=== PATIENT | male | born 1935 | race Caucasian/White ===

== ENCOUNTER 2017-11-04 11:32 | Observation (INO) | payer MEDICARE ==
[2017-11-04] MEDS ORDERED: Aspirin 81 mg CHEW TAB* 81 MG TAB.CHEW PO ONE (11:39)
--- NOTE | 2017-11-04 12:04 | ED ---
HPI Chest Pain - HPI Summary HPI Summary: patient is an 82-year-old male presenting to the ED with complaint of left anterior chest discomfort which began 3 days ago. He also endorses some left upper back pain which he does not feel is radiated from the anterior chest. Endorses some tingling feelings to the left arm and fingertips which is intermittent. He does not feel this currently. Symptoms have improved since 3 days ago, however he states he continues to have the feelings. History of quadruple bypass CABG in 1997. Stent placements 2 both prior to and after the CABG. Pacemaker placement in 2000 and battery changed in 2014. Most recent stress test was approximately 2 years ago and was "normal." On arrival he is comfortable, nondiaphoretic. is at bedside. 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 Last visit 8 months ago. He remains on aspirin 81 mg, and ramipiril 5mg, rosuvastatin 10mg once daily. Denies any SOB, fevers, sweats and chills. He states he takes care of himself otherwise and has not had any recent illness. He is feeling otherwise at baseline. - History of Current Complaint Chief Complaint: EDChestPainROMI Time Seen by Provider: 11/04/17 11:37 Hx Obtained From: Patient, Family/Dry Kiln Worker Onset/Duration: Started Days Ago - 3 days ago Timing: Constant Initial Severity: Mild Current Severity: Mild Pain Intensity: 4 Pain Scale Used: 0-10 Numeric Chest Pain Location: Left Anterior, Left Lateral Chest Pain Radiates: No Chest Pain Radiates To:: Neck - left sided neck pain Character: Dull/Aching Aggravating Factor(s): Nothing Alleviating Factor(s): Nothing Associated Signs and Symptoms: Positive: Negative - Risk Factors Pulmonary Embolism Risk Factors: Negative TAD Risk Factors: Negative AMI/ACS Risk Factors: Myocardial Infarction - previous CABG, Hypertension, Dyslipidemia - Additional Pertinent History Primary Care Physician: Dr. Phillips military technology manager Recent Stress Test: No - 1 year ago on 11/19/16 - Allergy/Home Medications Allergies/Adverse Reactions: Allergies Allergy/AdvReac Type Severity Reaction Status Date / Time amoxicillin Allergy Intermediate Nausea Verified 11/04/17 12:14 ciprofloxacin Allergy Intermediate Dizziness Verified 11/04/17 12:14 clavulanic acid Allergy Intermediate Nausea Verified 11/04/17 12:14 tamsulosin Allergy Intermediate Dizziness Verified 11/04/17 12:14 Home Medications: Home Medications ALPRAZolam TAB* [Xanax TAB*] 0.25 - 0.5 mg PO Q6H PRN 11/04/17 [History Confirmed 11/04/17] Aspirin EC TAB* [Ecotrin EC Low Dose 81 MG*] 81 mg PO DAILY 11/04/17 [History Confirmed 11/04/17] Azelastine 0.15% NASAL(NF) [Astepro 0.15% NASAL (NF)] 1 spray NASAL BID [History Confirmed 11/04/17] Clotrimazole/Betamethasone* [Lotrisone Cream*] 1 applic TOPICAL DAILY PRN [History Confirmed 11/04/17] LevoCETirizine TAB (NF) [Xyzal TAB (NF)] 5 mg PO DAILY 11/04/17 [History Confirmed 11/04/17] Levothyroxine TAB* [Synthroid TAB*] 125 mcg PO DAILY 11/04/17 [History Confirmed 11/04/17] Mometasone NASAL (NF) [Nasonex (NF)] 50 mcg BOTH NARES BID PRN 11/04/17 [ History Confirmed 11/04/17] Nitroglycerin TAB 0.3 MG* 0.3 mg SL Q5M PRN 11/04/17 [History Confirmed 11/04/17 ] [place]-3 Fatty Acids (Nf) [Fish Oil (NF)] 2,000 mg PO DAILY 11/04/17 [History Confirmed 11/04/17] QUEtiapine TAB* [Seroquel 25 MG TAB*] 25 - 50 mg PO BEDTIME 11/04/17 [History Confirmed 11/04/17] Ramipril CAP* [Altace CAP*] 5 mg PO DAILY 11/04/17 [History Confirmed 11/04/17] Rosuvastatin (NF) [Crestor (NF)] 10 mg PO DAILY 11/04/17 [History Confirmed ] Saline NASAL SPRAY 0.65%* [Sodium Chloride 0.65% Nasal [place]*] 1 spray BOTH NARES Q4H PRN 11/04/17 [History Confirmed 11/04/17] Ubidecarenone [Coq10] 100 mg PO DAILY 11/04/17 [History Confirmed 11/04/17] buPROPion SR TAB* [Wellbutrin SR TAB*] 150 mg PO BID 11/04/17 [History Confirmed 11/04/17] PMH/Surg Hx/FS Hx/Imm Hx Previously Healthy: Yes - CABG 1997, HTN, HLD, pacemaker Endocrine/Hematology History: Denies: Hx Diabetes Cardiovascular History: Reports: Hx Angina, Hx Coronary Artery Disease, Hx Hypercholesterolemia, Hx Hypertension, Hx Myocardial Infarction Respiratory History: Denies: Hx Asthma - Cancer History Cancer Type, Location and Year: PROSTATE CA - Surgical History Surgery Procedure, Year, and Place: CABAG 1996, PACEMAKER 1999, STENTS, [id number], NEW PACEMAKER IMPLANT Infectious Disease History: No Infectious Disease History: Reports: Hx Shingles Denies: Hx Clostridium Difficile, Hx Hepatitis, Hx Human Immunodeficiency Virus (HIV), Hx of Known/Suspected MRSA, Hx Tuberculosis, History Other Infectious Disease, Traveled Outside the [place] in Last 30 Days - Social History Alcohol Use: Rare Substance Use Type: Reports: None Smoking Status (MU): Never Smoked Tobacco Type: Cigarettes Review of Systems Constitutional: Negative Negative: Fever, Chills, Fatigue, Skin Diaphoresis ENT: Negative Positive: Chest Pain Respiratory: Negative Gastrointestinal: Negative Genitourinary: Negative Positive: no symptoms reported, see HPI Skin: Negative Positive: Weakness, Paresthesia. Negative: Headache, Numbness, Syncope, Slurred Speech Psychological: Normal All Other Systems Reviewed And Are Negative: Yes Physical Exam Triage Information Reviewed: Yes Vital Signs On Initial Exam: Initial Vitals Resp 13 11/04/17 11:37 Vital Signs Reviewed: Yes Appearance: Positive: Well-Appearing, Well-Nourished Skin: Positive: Warm, Skin Color Reflects Adequate Perfusion Head/Face: Positive: Normal Head/Face Inspection Eyes: Positive: EOMI Neck: Positive: Supple, Nontender, No Lymphadenopathy Respiratory/Lung Sounds: Positive: Clear to Auscultation, Breath Sounds Present Cardiovascular: Positive: RRR - paced rhythm, Pulses are Symmetrical in both Upper and Lower Extremities. Negative: Leg Edema Left, Leg Edema Right Musculoskeletal: Positive: Normal, Strength/ROM Intact Neurological: Positive: Speech Normal Psychiatric: Positive: Normal, Affect/Mood Appropriate AVPU Assessment: Alert Diagnostics - Vital Signs Vital Signs Temp Pulse Resp BP Pulse Ox 11/04/17 11:39 60 17 189/78 98 11/04/17 11:38 97.3 F 67 19 189/78 98 11/04/17 11:37 13 - Laboratory Result Diagrams: 11/04/17 13:07 11/04/17 13:07 Lab Statement: Any lab studies that have been ordered have been reviewed, and results considered in the medical decision making process. - Radiology No standard instances Xray Interpretation: No Acute Changes Radiology Interpretation Completed By: Radiologist - EKG No standard instances Cardiac Rate: NL - paced rhythm Re-Evaluation - Re-Evaluation First Eval Change: Unchanged - Patient has been unchanged since arrival. Sxs remain Chest Pain Course/Dx - Course Course Of Treatment: During the course of treatment, the patient is evaluated for acute onset chest pain 3 days ago. Symptoms are left anterior chest wall which is not reproducible. Also endorses some numbness and tingling into the left arm and fingertips. He denies this currently. He takes aspirin and ramipril daily. Dr. Phillips is his military technology manager. Last stress test 2 years ago and last visit with Dr. Phillips 8 months ago. Labs obtained which is unremarkable including 0.00 troponin. EKG shows atrial paced rhythm, nonspecific intraventricular conduction delay, borderline T abnormalities. Chest xray shows No Acute Cardiopulmonary Findings. Spoke to Dr. Pandya who recommends admission to hospitalist service. Spoke with Dr. Jorge at 2:25p who agrees to admit. Patient remains stable. - Chest Pain Differential Diagnosis/HQI/PQRI: Angina, Chest Wall - Diagnoses Provider Diagnoses: Chest pain - Provider Notifications Discussed Care Of Patient With: Alyssa Pandya - Suggests admission Instructed by Provider To: Admit As Inpatient Discharge - Sign-Out/Discharge Documenting (check all that apply): Discharge/Admit/Transfer - Discharge Plan Condition: Stable Disposition: ADMITTED TO [facility] Referrals: Vani Rao [Primary Care Provider] - - Billing Disposition and Condition Condition: STABLE Disposition: Admitted to [facility]
--- NOTE | 2017-11-04 12:44 | RAD ---
INDICATION: Chest pain. COMPARISON: There are no prior studies available for comparison. TECHNIQUE: Dual-energy PA and lateral views of the chest were obtained. FINDINGS: The patient appears to be status post coronary artery bypass surgery. There is a dual-chamber transvenous pacemaker present. The heart is within normal limits in size. The lungs are slightly hyperinflated and clear. No pleural effusion is seen. IMPRESSION: POSTSURGICAL CHANGES, NO EVIDENCE FOR ACUTE FINDING.
[2017-11-04 13:22] LABS: ABS Basophils 0 10^3/ul (0-0.2); ABS Eosinophils 0.8 10^3/ul (0-0.6); ABS Lymphocytes 2.2 10^3/ul (1.0-4.8); ABS Neutrophils 3.3 10^3/ul (1.5-7.7); ABS Nucleated RBC 0 10^3/ul; Eosinophil % 10.6 % (0-6); Hematocrit 52 % (42-52); Hemoglobin 17.6 g/dl (14.0-18.0); Lymphocyte % 30.2 % (25-47); Mean Corpuscular HGB Conc 34 g/dl (31-36); Mean Corpuscular Hemoglobin 31 pg (27-31); Mean Corpuscular Volume 90 fL (80-94); Mean Platelet Volume 7.7 um3 (7.4-10.4); Nucleated Red Blood Cells % 0.2; Platelet Count 220 10^3/ul (150-450); Red Blood Count 5.75 10^6/ul (4.00-5.40); Red Cell Distribution Width 14 % (10.5-15); White Blood Count 7.3 10^3/ul (3.5-10.8)
[2017-11-04 13:40] LABS: INR 0.9 (0.77-1.02)
[2017-11-04 13:41] LABS: EGFR Non-African American 51.2 (>60)
[2017-11-04] MEDS ORDERED: oxyCODONE/Acetamin 5/325 MG* TAB PO PRN (14:37)
[2017-11-04] MEDS ORDERED: Al Hydrox/Mg Hydrox/Simet LIQ* 30 ML UDC PO PRN (14:37)
[2017-11-04] MEDS ORDERED: Morphine VIAL* 4 MG/ML VIAL (1 ml vial) IV PRN (14:37)
[2017-11-04] MEDS ORDERED: Ondansetron INJ* 2 MG/ML VIAL IV PRN (14:37)
[2017-11-04] MEDS ORDERED: Acetaminophen TAB* 325 MG PO PRN (14:37)
[2017-11-04] MEDS ORDERED: Magnesium Hydroxide LIQ* 30 ML UDC PO PRN (14:37)
[2017-11-04] MEDS ORDERED: Nitroglycerin TAB 0.3 MG* 0.3 MG TAB SL PRN (14:44)
[2017-11-04] MEDS ORDERED: Saline NASAL SPRAY 0.65%* BTL BOTH NARES PRN (14:44)
[2017-11-04] MEDS ORDERED: Fluticasone NASAL SPRAY 50MCG* 16 gm SPRAY BTL BOTH NARES PRN (14:44)
[2017-11-04] MEDS ORDERED: Clotrimazole/Betamethasone CREAM* 15 GM TOPICAL PRN (14:44)
[2017-11-04] MEDS ORDERED: ALPRAZolam TAB* 0.25 MG PO PRN (14:44)
[2017-11-04] MEDS ORDERED: QUEtiapine TAB* 25 MG PO SCH (21:00)
[2017-11-04] MEDS: buPROPion SR TAB.SR* 150 MG PO SCH (22:17)
[2017-11-04] MEDS: Azelastine 0.15% NASAL(NF) 30 ML BTL BOTH NARES SCH (22:17)
[2017-11-04] MEDS: Senna TAB PO SCH (22:18)
[2017-11-04] MEDS: Heparin VIAL(*) 5000 UNITS/ML VIAL (FIVE THOUSAND) SUBCUT SCH (22:18)
--- NOTE | 2017-11-04 23:51 | HP ---
CC: Ms. Rao; Dr. Clarence Phillips * ADMISSION HISTORY AND PHYSICAL: DATE OF ADMISSION: 11/04/17 PATIENT OF: Uziel Jorge MD. * (DICTATED BY CAITY FUNEZ) PRIMARY CARE PHYSICIAN: aVni Rao NP. PRIMARY WIND FARM ELECTRICAL SYSTEMS DESIGNER: Dr. Clarence Phillips. CHIEF COMPLAINT: Chest pain and left arm tightness. HISTORY OF PRESENT ILLNESS: Mr. Holt is a pleasant 82-year-old gentleman who has a past medical history significant for hypertension, hyperlipidemia, hypothyroidism, coronary artery disease for which he had CABG in 1996 at [facility] as well as several angioplasty and stents, most recently in 2006, as well as a pacemaker placement in July 2010, who presented to the emergency room earlier today with a 2 to 3 days history of intermittent chest tightness and left arm tightness and numbness. The patient notes that his chest discomfort is not really severe and it does not seem to be triggered by exertion. He denied any associated shortness of breath, diaphoresis, weakness, dizziness, or syncope. He also notes being relatively active given his age and medical status, but denies any chest pain at rest. He was evaluated in the emergency room and had an EKG that revealed no significant ST changes. He also had laboratory workup that revealed normal chemistry as well as normal hemoglobin and hematocrit and his troponin value was essentially 0. His chest x-ray was done as well that revealed no acute findings. At the time of admission in the ED, the patient was essentially chest pain free; however, given his multiple risk factors as well as his history of coronary artery disease, we were asked to see the patient to consider admission for observation and to discuss possible stress test during this admission. The patient had his most recent stress test as an outpatient back in November 2016. He also had a nuclear medicine scan at the same time that revealed good ejection fraction of 73%, a TID of 0.9 with overall low risk as an assessment. PAST MEDICAL HISTORY: As mentioned above. Significant for: 1. Hypertension. 2. Hyperlipidemia. 3. Anxiety and depression. 4. Hypothyroidism. 5. Coronary artery disease for which the patient had angioplasty with stents as well as a recent CABG back in 1996. 5. He also has history of benign prostatic hypertrophy with urinary obstruction for which he had a prostatectomy back in 2001. PAST SURGICAL HISTORY: Again significant for: 1. Coronary artery bypass graft in 1996 with four vessel angioplasty in [facility]. 2. He also had stent placed to the RCA at [facility] in 2006. 4. He is also status post prostatectomy in 2001. 5. Vasectomy. 6. Pacemaker placement in 1997 due to second degree heart block and again replaced pacemaker in July 2010. CURRENT MEDICATIONS: His medications at home include: 1. Xanax at 0.25 one to two tablets q.6 hours as needed for anxiety. 2. Aspirin 81 mg p.o. q. daily. 3. Azelastine nasal spray 0.15% one spray in each nostril b.i.d. 4. Wellbutrin 150 mg p.o. b.i.d. 5. Lotrisone cream 1 application topically as needed for itching. 6. Xyzal 5 mg p.o. q. daily. 7. Synthroid 125 mcg p.o. q. daily. 8. Nasonex 50 mcg both nostrils once daily. 9. Nitroglycerin 0.3 mg sublingual every 5 minutes as needed for angina. 10. Fish oil supplement 2000 mg p.o. q. daily. 11. Seroquel 25 mg p.o. q. daily. 12. Altace 5 mg p.o. q. daily. 13. Crestor 10 mg p.o. q. daily. 14. Saline nasal spray both nostrils as needed. ALLERGIES: Multiple including AMOXICILLIN, CIPROFLOXACIN, CLAVULANIC ACID, and TAMSULOSIN. FAMILY HISTORY: Significant for hypertension and heart disease, but denies any family history of malignancies. SOCIAL HISTORY: The patient is . 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 He is a nonsmoker. He used to smoke and quit back at age 38. He drinks alcohol rarely. His Zayda is the healthcare proxy carrier. REVIEW OF SYSTEMS: See HPI. Otherwise, 14 points review of systems were reviewed and were essentially negative. PHYSICAL EXAMINATION GENERAL: He is a pleasant, healthy-appearing older gentleman, in no acute distress or discomfort at the time of admission. VITAL SIGNS: Revealed a blood pressure of 161/81, pulse of 62, temperature of 97.4, respirations of 16, and O2 sat of 99% on room air. HEENT: Head is normocephalic, atraumatic. Sclerae anicteric. PERRLA. EOMs intact. Oropharynx is pink and moist. NECK: Supple. Trachea midline. No cervical adenopathy, thyromegaly, or carotid bruits. LUNGS: Clear to auscultation bilaterally. HEART: Regular rate and rhythm. Normal S1 and S2 without rubs, murmurs, or gallops. BACK: With normal curvature. No CVA tenderness. CHEST: There is a midsternal incision noted from old coronary bypass graft, appears to be well healed. ABDOMEN: Soft, nontender, and nondistended without hernias, masses, or hepatosplenomegaly. EXTREMITIES: Without cyanosis, clubbing, or edema. RECTAL: Exam deferred at this time. NEUROLOGIC: Grossly intact. Hand information systems planner was equal bilaterally. Tongue is midline and sensation is intact throughout. LABORATORY WORKUP: CBC done with white count of 7000, hemoglobin 17.6, hematocrit of 52, and platelets of 220. Chemistry panel with sodium of 134, potassium 4.7, chloride 101, CO2 of 28, BUN of 20, creatinine 1.3, his glucose is 79. Lactic acid 1.0. Magnesium 2.2. Troponin is 0. LFTs within normal limits. CK-MB and total creatine kinase all within normal limits. ACCESSORY DIAGNOSTIC DATA: Chest x-ray performed today revealed no evidence of acute cardiopulmonary findings. EKG was done and compared to previous ones, there was sinus rhythm, atrial paced complex with no evidence of ST depression or changes. IMPRESSION: An 82-year-old gentleman with past medical history significant for coronary artery disease, hypertension, hyperlipidemia, who had coronary bypass graft back in 1996 as well as a pacemaker placement in 2010, who presented to the emergency room with complaints of intermittent chest tightness for the past 2 to 3 days, who will be admitted to tele for observation given his multiple risk factors and prior coronary artery disease. ASSESSMENT AND PLAN: 1. Coronary artery disease. The patient appears to be stable at the time of admission. He will be admitted to telemetry for close observation and we will obtain trending troponins. His EKG will be repeated in the morning and we discussed with Dr. Phillips the possibility of performing a stress test this weekend. In the event that he present this weekend for any urgent cases, we will likely proceed with stress test during this admission; however, if his troponin remained flat and he experienced no recurrent chest discomfort, it will be safe for him to be discharged tomorrow and we can do the stress test as an outpatient. 2. Hypertension. We will continue his Altace. 3. Hyperlipidemia. The patient will continue his statin. 4. Hypothyroidism. We will continue his Synthroid as prescribed. 5. Anxiety and depression. We will continue his Wellbutrin and Xanax as needed for anxiety. 6. DVT prophylaxis: The patient is a high risk and will be covered with subcu heparin. 7. Code status: He is a full code and his Zayda is the healthcare proxy carrier. DISPOSITION: Admit for observation to telemetry to rule out acute coronary syndrome, obtaining trending troponins, and possibly do a nuclear stress test sometime this weekend. TIME SPENT: I spent approximately 60 minutes admitting this patient with more than 50% of the time obtaining history and performing physical exam. I discussed the case with my attending Dr. Jorge who is in agreement with management plan. CAITY FUNEZ [id number]/[facility] #: [id number] GEOVANI
[2017-11-05] MEDS ORDERED: Levothyroxine TAB* 125 MCG TAB PO SCH (06:00)
[2017-11-05] MEDS: Heparin VIAL(*) 5000 UNITS/ML VIAL (FIVE THOUSAND) SUBCUT SCH ×2 (06:08→14:52)
[2017-11-05] MEDS: buPROPion SR TAB.SR* 150 MG PO SCH (08:17)
[2017-11-05] MEDS: Senna TAB PO SCH (08:17)
[2017-11-05] MEDS: Azelastine 0.15% NASAL(NF) 30 ML BTL BOTH NARES SCH (08:19)
[2017-11-05] MEDS ORDERED: Ramipril CAP* 5 MG PO SCH (09:00)
[2017-11-05] MEDS ORDERED: Cetirizine* 10 MG TAB PO SCH (09:00)
[2017-11-05] MEDS ORDERED: Aspirin EC TAB* 81 MG TAB.EC PO SCH (09:00)
[2017-11-05] MEDS ORDERED: OMEGA-3 FATTY ACIDS (NF) 1,000 MG CAP PO SCH (09:00)
[2017-11-05] MEDS ORDERED: COENZYME Q10 100 MG PO SCH (09:00)
[2017-11-05] MEDS ORDERED: amLODIPine TAB* 5 MG PO ONE (09:13)
--- NOTE | 2017-11-05 12:15 | RAD ---
INDICATION: Change in mental status COMPARISON: None TECHNIQUE: Noncontrast axial source images were acquired from the skull base to the vertex. FINDINGS: Ventricles/sulci: The ventricles and cisterns are normal in size and configuration for age. Brain parenchyma: There is no focal parenchymal finding, evidence of intracranial mass, or intracranial mass effect. Intracranial hemorrhage:None. Extra-axial spaces: There are no abnormal extra axial fluid collections or evidence of extra-axial mass. Calvarium: There is no calvarial fracture or other calvarial abnormality. Scalp: There is no evidence of scalp or extracalvarial soft tissue abnormality. Paranasal sinuses/mastoid: There is mild ethmoid sinus disease. Other: None. IMPRESSION: NO ACUTE INTRACRANIAL FINDINGS
[2017-11-05 12:18] VITALS: BP 155/85
--- NOTE | 2017-11-05 18:56 | DS ---
CC: Vani Rao NP; Dr. Phillips * DISCHARGE SUMMARY: DATE OF ADMISSION: 11/04/17 DATE OF DISCHARGE: 11/05/17 PRIMARY CARE PROVIDER: Vani Rao NP PRIMARY LIFE CYCLE ASSESSMENT ANALYST: Dr. Phillips. ATTENDING PHYSICIAN: Dr. Jorge. MY ATTENDING FOR TODAY: Trace Munson MD * (DICTATED BY SERENA CINTRON NP) HOSPITAL COURSE: This is a very pleasant 82-year-old male patient with longstanding history of coronary artery disease. He has had CABG in the past back in 1996. He has had angioplasties and stents. His last stent I think was in 2006 and pacemaker replacement in 2010. His first pacemaker was placed also in the late . The patient states he was at home and started approximately 4 days ago having some vague atypical chest pain and also some pain in the left neck, also followed by a left frontal headache that was transient in nature. The patient states that the symptoms kept coming back and he came to the emergency department for evaluation based on this history. Of significant note , he did have a negative stress test in November 2016. His ejection fraction at that time was 73% and he was read as low risk. The patient was admitted for rule out. His troponins were negative and he had no acute EKG changes, no acute ST segment elevations noted. The patient's labs were unremarkable; however , given his history, again he was admitted for observation. Today, the patient is seen. He has had negative troponins since admission. He reports his chest pain has resolved. His chest x- ray had no acute findings. He had no complaints today and stated that his symptoms completely resolved. However, I did have a discussion with the patient regarding his neurologic symptoms. He said he had some tingling in the left hand and again this pressure in the left side of the head. As such, I felt it was prudent to send the patient for a CT of the head. Brain CT was negative for any acute pathology. There were no acute intracranial findings other than some ethmoid sinus disease. The patient again had no complaints. After much discussion, the patient felt comfortable being discharged to home after being ruled out. He would follow up with Dr. Phillips and then [facility] for an outpatient stress test and any other cardiac workup that they feel would be necessary based on this patient's history. The patient was agreeable to the plan and ready for discharge to home. PHYSICAL EXAMINATION: The patient is alert, in no acute distress. Vital Signs : On day of discharge are blood pressure 155/85, heart rate 59 and paced, respiratory rate 16, O2 saturation 98% on room air with a temperature of 97.7. HEENT: The patient is atraumatic and normocephalic. PERRLA with nonicteric sclerae. Neck is supple, nontender. No JVD noted and no carotid bruits auscultated. Cardiovascular: S1 and S2 present. He is paced, regular. No murmurs, gallops, or rubs noted. Lungs are clear bilaterally to auscultation with no adventitious breath sounds. Abdomen is soft, nontender, and nondistended. Positive bowel sounds in all 4 quadrants. is deferred. Musculoskeletal: There is no clubbing, no cyanosis, and no edema. He has a steady gait. +2 distal pulses palpable. Neurologic: He is grossly intact with no new focalities. There is no pronator drift. He has equal refund specialist, equal strength, and steady gait. His extraocular movements and cranial nerves are intact. Psychiatric: He is cooperative and appropriate. LABORATORY DATA: WBC's 7.3, RBC's 5.75, hemoglobin 17.6, platelets 220,000. Chemistries: Sodium 134, potassium 4.7, chloride 101, CO2 of 28, BUN 20, creatinine 1.33, GFR 51.2, glucose 79, lactic acid 1.0, calcium 9.2, magnesium 2.2. Liver function within normal limits. Troponins were negative at 0.00, 0.01 , 0.00 and 0.01. Triglycerides 136, cholesterol 149, LDL cholesterol 82, and HDL is 40.2. DISCHARGE MEDICATIONS: Include: 1. Nasonex daily. 2. Lotrisone cream as needed. 3. Astepro nasal daily. 4. Crestor 10 mg daily. 5. Ramipril 5 mg daily. 6. Xyzal 5 mg daily. 7. Seroquel 25 to 50 mg at bedtime. 8. Levothyroxine 125 mcg daily. 9. Xanax 0.25 p.o. q.6 hours as needed. 10. Bupropion sustained release 150 mg 2 times a day. 11. CoQ10 of 100 mg daily. 12. Fish oil 2000 mg daily. 13. Nitroglycerin as needed. 14. Aspirin 81 mg daily. DISCHARGE DIAGNOSES: 1. Coronary artery disease, rule out acute coronary syndrome. The patient did not rule in. He had negative troponins, negative for EKG changes. 2. History of hypertension. Continued on Altace. He did have an episode of hypertension overnight, but his blood pressure seemed to come back to normal today. 3. History of hyperlipidemia. He is on statin. 4. History of hypothyroidism. We continued his Synthroid. 5. History of anxiety and depression. He is on Wellbutrin and Xanax as needed. 6. Slightly elevated kidney function. He has some very mild chronic kidney disease. DISPOSITION: The patient was discharged in stable condition. All questions were answered. The patient stated his understanding of his discharge instructions and followups. Again, the patient was discharged in stable condition. [facility] will follow up with the patient to schedule an outpatient stress test. This has been discussed also with Dr. Jorge, who was present during this discharge. SERENA CINTRON NP [id number]/[facility] #: [id number] GEOVANI
== END 2017-11-05 17:00 | disposition home or self-care (01) ==
LOC: ED 11:32 → MEDTELE 14:37
PROVIDERS: ADMIT Internal Medicine; ATTEND Internal Medicine
DX: R07.9 Chest pain, unspecified (principal); M54.2 Cervicalgia; I25.119 Atherosclerotic heart disease of native coronary artery with unspecified angina pectoris; Z95.1 Presence of aortocoronary bypass graft; Z95.0 Presence of cardiac pacemaker; I10 Essential (primary) hypertension; E78.5 Hyperlipidemia, unspecified; F41.9 Anxiety disorder, unspecified; F32.9 Major depressive disorder, single episode, unspecified; E03.9 Hypothyroidism, unspecified; Z95.5 Presence of coronary angioplasty implant and graft; Z79.899 Other long term (current) drug therapy; Z88.0 Allergy status to penicillin; Z88.1 Allergy status to other antibiotic agents; Z88.8 Allergy status to other drugs, medicaments and biological substances; Z79.82 Long term (current) use of aspirin; Z87.891 Personal history of nicotine dependence; Z82.49 Family history of ischemic heart disease and other diseases of the circulatory system; R94.31 Abnormal electrocardiogram [ECG] [EKG]
CPT/HCPCS: 36415; 70450; 71046; 80053; 80061; 82550; 82553; 83605; 83735; 83874; 83880; 84484; 85025; 85610; 85730; 93005; 96372; 99283; A9270-GY; G0378; J1644

== ENCOUNTER 2020-10-07 11:45 | Observation (INO) ==
[2020-10-07] MEDS ORDERED: NS 0.9% 1000 ml BAG 1,000 ML IV ONE (12:24)
[2020-10-07 12:49] LABS: ABS Eosinophils 0.3 10^3/ul (0-0.6); ABS Lymphocytes 1.2 10^3/ul (1.0-4.8); ABS Monocytes 0.5 10^3/ul (0-0.8); ABS Neutrophils 3.6 10^3/ul (1.5-7.7); Eosinophil % 4.9 %; Hematocrit 50 % (42-52); Hemoglobin 17.2 g/dL (14.0-18.0); Lymphocyte % 21.8 %; Mean Corpuscular HGB Conc 35 g/dL (31-36); Mean Corpuscular Hemoglobin 32 pg (27-31); Mean Corpuscular Volume 90 fL (80-94); Mean Platelet Volume 8.1 fL (7.4-10.4); Nucleated Red Blood Cells % 0.1; Platelet Count 200 10^3/uL (150-450); Red Blood Count 5.47 10^6 /uL (4.18-5.48); Red Cell Distribution Width 13 % (10-15); White Blood Count 5.7 10^3/uL (3.5-10.8)
[2020-10-07 13:04] LABS: Activated Partial Thrombo Time 33.9 seconds (26.0-38.0); INR 1.01 (0.82-1.09)
[2020-10-07 13:08] LABS: Troponin I 0.01 ng/mL (<0.03)
[2020-10-07 13:25] LABS: Albumin 4.2 g/dL (3.2-5.2); Albumin/Globulin Ratio 1.9 (1-3); Calcium 9.2 mg/dL (8.6-10.3); EGFR Non-African American 56.2 (>60); Globulin 2.2 g/dL (2-4); HDL Cholesterol 39.8 mg/dL; Potassium 4.4 mmol/L (3.5-5.0); Total Bilirubin 0.7 mg/dL (0.2-1.0); Total Protein 6.4 g/dL (6.4-8.9)
[2020-10-07] MEDS ORDERED: Azelastine 0.15% NASAL(NF) 30 ML BTL BOTH NARES ONE (13:40)
[2020-10-07] MEDS ORDERED: LevoCETirizine 5 mg TAB (NF) PO ONE (13:41)
[2020-10-07] MEDS ORDERED: Fluticasone NASAL SPRAY 50MCG 16 gm SPRAY BTL BOTH NARES ONE (13:56)
[2020-10-07 14:01] LABS: Urine Appearance Clear; Urine Bilirubin Negative (Negative); Urine Blood Negative (Negative); Urine Color Yellow; Urine Glucose Negative (Negative); Urine Ketones Negative (Negative); Urine Nitrite Negative (Negative); Urine Protein Negative (Negative); Urine Specific Gravity 1.011 (1.002-1.030); Urine Urobilinogen Negative (Negative)
[2020-10-07] MEDS ORDERED: Iodixanol (CONTRAST) 320 MG/ML 100 ML SDV IV ONE (14:39)
[2020-10-07] MEDS ORDERED: Ondansetron 4 mg VIAL 2 MG/ML 2 ml VIAL IV PRN (17:48)
[2020-10-07] MEDS ORDERED: Saline NASAL SPRAY 0.65% BTL BOTH NARES PRN (17:50)
[2020-10-07] MEDS: Enoxaparin 40 MG/0.4 ML SYR SUBCUT SCH (21:45)
[2020-10-08 06:17] LABS: ABS Eosinophils 0.5 10^3/ul (0-0.6); ABS Lymphocytes 2.6 10^3/ul (1.0-4.8); ABS Monocytes 1.1 10^3/ul (0-0.8); ABS Neutrophils 4.4 10^3/ul (1.5-7.7); Eosinophil % 5.6 %; Hematocrit 52 % (42-52); Hemoglobin 17.8 g/dL (14.0-18.0); Lymphocyte % 30.1 %; Mean Corpuscular HGB Conc 35 g/dL (31-36); Mean Corpuscular Hemoglobin 32 pg (27-31); Mean Corpuscular Volume 92 fL (80-94); Platelet Count 229 10^3/uL (150-450); Red Blood Count 5.63 10^6 /uL (4.18-5.48); Red Cell Distribution Width 14 % (10-15); White Blood Count 8.6 10^3/uL (3.5-10.8)
[2020-10-08 06:36] LABS: Calcium 9.1 mg/dL (8.6-10.3); EGFR Non-African American 56.2 (>60); HDL Cholesterol 41.4 mg/dL; Potassium 3.9 mmol/L (3.5-5.0)
[2020-10-08] MEDS: Aspirin EC 81 mg TAB.EC (enteric coated) PO SCH (08:04)
[2020-10-08] MEDS: Fluticasone NASAL SPRAY 50MCG 16 gm SPRAY BTL BOTH NARES SCH (08:04)
[2020-10-08] MEDS: Enoxaparin 40 MG/0.4 ML SYR SUBCUT SCH (21:03)
[2020-10-09] MEDS: Fluticasone NASAL SPRAY 50MCG 16 gm SPRAY BTL BOTH NARES SCH (09:07)
[2020-10-09] MEDS: Aspirin EC 81 mg TAB.EC (enteric coated) PO SCH (09:07)
[2020-10-09 12:56] VITALS: BP 137/79
== END 2020-10-09 13:06 | disposition home or self-care (01) ==
LOC: ED 11:45 → MEDTELE 11:45
PROVIDERS: ADMIT Hospitalist; ATTEND Hospitalist

== ENCOUNTER 2022-02-24 19:12 | Observation (INO) ==
[2022-02-24 19:42] LABS: ABS Eosinophils 0.3 10^3/ul (0-0.6); ABS Lymphocytes 1.6 10^3/ul (1.0-4.8); ABS Monocytes 1.5 10^3/ul (0-0.8); ABS Neutrophils 3.1 10^3/ul (1.5-7.7); Eosinophil % 5.2 %; Hematocrit 49 % (42-52); Hemoglobin 16.3 g/dL (14.0-18.0); Lymphocyte % 24.2 %; Mean Corpuscular HGB Conc 33 g/dL (31-36); Mean Corpuscular Hemoglobin 30 pg (27-31); Mean Corpuscular Volume 89 fL (80-94); Mean Platelet Volume 7.6 fL (7.4-10.4); Nucleated Red Blood Cells % 0.1; Platelet Count 206 10^3/uL (150-450); Red Blood Count 5.48 10^6 /uL (4.18-5.48); Red Cell Distribution Width 15 % (10-15); White Blood Count 6.6 10^3/uL (3.5-10.8)
[2022-02-24] MEDS ORDERED: Iodixanol (CONTRAST) 320 MG/ML 100 ML SDV IV ONE (19:45)
[2022-02-24 19:51] LABS: Activated Partial Thrombo Time 28.3 seconds (26.0-38.0); INR 0.97 (0.89-1.11)
[2022-02-24 20:14] LABS: Urine Appearance Clear; Urine Bilirubin Negative (Negative); Urine Blood Negative (Negative); Urine Color Yellow; Urine Glucose Negative (Negative); Urine Ketones Negative (Negative); Urine Nitrite Negative (Negative); Urine Protein Negative (Negative); Urine Specific Gravity 1.025 (1.002-1.030); Urine Urobilinogen Negative (Negative)
[2022-02-24 20:32] LABS: Albumin 4.2 g/dL (3.2-5.2); Albumin/Globulin Ratio 1.9 (1-3); Calcium 9.2 mg/dL (8.6-10.3); Globulin 2.2 g/dL (2-4); HDL Cholesterol 35.2 mg/dL; Total Bilirubin 0.6 mg/dL (0.2-1.0); Total Protein 6.4 g/dL (6.4-8.9); eGFR CKD-EPI 54.9 (>60)
[2022-02-24 21:11] LABS: High Sensitivity Troponin 1 Hr 9 pg/mL (<20)
[2022-02-24 21:31] LABS: Potassium 4.5 mmol/L (3.5-5.0)
[2022-02-25 07:02] LABS: ABS Eosinophils 0.4 10^3/ul (0-0.6); ABS Lymphocytes 1.6 10^3/ul (1.0-4.8); ABS Monocytes 1.4 10^3/ul (0-0.8); ABS Neutrophils 2.6 10^3/ul (1.5-7.7); Hematocrit 46 % (42-52); Hemoglobin 15.6 g/dL (14.0-18.0); Mean Corpuscular HGB Conc 34 g/dL (31-36); Mean Corpuscular Hemoglobin 30 pg (27-31); Mean Corpuscular Volume 89 fL (80-94); Mean Platelet Volume 7.6 fL (7.4-10.4); Nucleated Red Blood Cells % 0.1; Platelet Count 197 10^3/uL (150-450); Red Blood Count 5.14 10^6 /uL (4.18-5.48); Red Cell Distribution Width 14 % (10-15)
[2022-02-25 07:22] LABS: Albumin 3.8 g/dL (3.2-5.2); Calcium 8.9 mg/dL (8.6-10.3); Potassium 4.2 mmol/L (3.5-5.0); Total Bilirubin 0.6 mg/dL (0.2-1.0)
[2022-02-25 07:27] LABS: Globulin 1.9 g/dL (2-4); Total Protein 5.7 g/dL (6.4-8.9); eGFR CKD-EPI 55.9 (>60)
[2022-02-25] MEDS: Cholecalciferol (VIT D3) 1,000 unit TAB PO SCH (08:59)
[2022-02-25] MEDS: Enoxaparin 40 MG/0.4 ML SYR SUBCUT SCH (09:26)
[2022-02-25] MEDS ORDERED: LoraTADine 10 mg TAB (NF) PO ONE (13:14)
[2022-02-25] MEDS: Azelastine 0.15% NASAL(NF) 30 ML BTL BOTH NARES SCH ×2 (16:18→23:11)
[2022-02-26] MEDS: Enoxaparin 40 MG/0.4 ML SYR SUBCUT SCH (05:11)
[2022-02-26] MEDS ORDERED: Ondansetron 4 mg VIAL 2 MG/ML 2 ml VIAL IV PRN (10:30)
[2022-02-26] MEDS: Cholecalciferol (VIT D3) 1,000 unit TAB PO SCH (10:59)
[2022-02-26] MEDS: Azelastine 0.15% NASAL(NF) 30 ML BTL BOTH NARES SCH (11:07)
[2022-02-26 12:41] VITALS: BP 158/83
== END 2022-02-26 16:30 | disposition home or self-care (01) ==
LOC: ED 19:12 → EDHOLD 19:12 → MEDTELE 02-25 04:47
PROVIDERS: ADMIT Internal Medicine; ATTEND Internal Medicine